=== PATIENT | male | born 1970 | race Caucasian/White ===

== ENCOUNTER 2021-08-22 09:16 | Outpatient (CLI) | payer OTHER ==
[~2021-08-22 09:16] MED LIST: PREVACID30 MG
== END 2021-08-22 09:34 | disposition home or self-care (01) ==
LOC: MRI 09:16 → MAMO-SONO 09:16 → MRI 09:34
DX: M85.00 Fibrous dysplasia (monostotic), unspecified site (principal)
CPT/HCPCS: 72195

== ENCOUNTER 2021-09-17 08:44 | Outpatient (CLI) | payer OTHER | END 2021-09-17 08:49 | disposition home or self-care (01) | LOC: MRI 08:44 | DX: M54.2 Cervicalgia (principal) | CPT/HCPCS: 72141 ==